=== PATIENT | female | born 1955 | race Caucasian/White ===

== ENCOUNTER 2018-05-22 12:36 | Emergency (ER) | payer OTHER ==
--- NOTE | 2018-05-22 13:01 | EDM.PDOC ---
ED HPI GENERAL MEDICAL PROBLEM - General Chief Complaint: Genitourinary Problem Stated Complaint: BLADDER PROBLEMS Time Seen by Provider: 05/22/18 13:00 Source of Information: Reports: Patient History Limitations: Reports: No Limitations - History of Present Illness INITIAL COMMENTS - FREE TEXT/NARRATIVE: 62-year-old female presents to the ED at the request of her primary care physician. Patient has recurrent urinary tract infections over the last 6 months. She is known to have bladder prolapse. 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 Has a known recurrent prolapse of the urinary bladder. She has been on Macrobid on 3 occasions in the month of April and May. Last culture was May 18 and is growing out Klebsiella oxytocae-- ESBL--resistant to almost all medications except for ciprofloxacin. It is also sensitive to tobramycin/gentamicin. Patient is having right flank pain in the distribution of her right kidney. Associated generalized muscle weakness. Chills last night but no defined fever. Appetite is poor. Intermittent mild nausea. She thought maybe the Macrobid was making her sick. She was followed by her primary care physician today to indicate that the organism was only intermediately sensitive to Macrobid and therefore she requires intravenous antibiotics. Onset: Gradual Onset Date: 05/16/18 (.Urinary tract symptoms are recurring in her bladder on May 16. Was seen in clinic May 18 with repeat urine culture. Has been feeling increasingly unwell since started on Macrobid at that time.) Duration: Day(s):, Getting Worse Location: Reports: Back (Developing right flank pain compatible with pyelonephritis.), Generalized Severity: Moderate Improves with: Reports: None Worsens with: Reports: None Context: Reports: Other (Known urinary tract infection due to prolapsed urinary bladder presumably. Is growing out Klebsiella oxytocia-- ESBL which is resistant to most antibiotics.). Denies: Activity, Exercise, Lifting, Sick Contact, Trauma Associated Symptoms: Reports: Cough, Fever/Chills (Chills but no defined fever.) , Loss of Appetite, Malaise (Occasional cough), Nausea/Vomiting, Weakness (Poor appetite and normalize muscle weakness), Other. 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: Other (see below) (Has been on Macrobid 100 mg twice a day for the last 4 days.) groin/backache Pain Score (Numeric/FACES): 7 - Related Data Allergies Allergy/AdvReac Type Severity Reaction Status Date / Time amitriptyline Allergy Hives Verified 05/22/18 12:58 codeine Allergy Hives Verified 02/19/14 18:05 ketorolac [From Toradol] Allergy Headache Verified 05/22/18 12:58 morphine Allergy Hives Verified 02/19/14 18:05 olmesartan [From Benicar] Allergy Other Verified 05/22/18 12:58 sulfamethoxazole Allergy Anaphylactic Verified 05/22/18 12:58 [From Bactrim] Shock tramadol Allergy Headache Verified 05/22/18 12:58 trimethoprim [From Bactrim] Allergy Anaphylactic Verified 05/22/18 12:58 Shock Home Meds: Home Meds Lisinopril [Prinivil] 40 mg PO BID 02/19/14 [History] Acetaminophen [Non-Aspirin Extra Strength] 1,000 mg PO QID PRN 05/22/18 [History ] Nitrofurantoin Monohyd/M-Cryst [Macrobid 100 mg Capsule] 100 mg PO BID 05/22/18 [History] Phenazopyridine [Pyridium] 100 mg PO TID PRN 05/22/18 [History] Promethazine [Phenergan] 25 mg PO Q6H PRN 05/22/18 [History] Ranitidine [Zantac] 150 mg PO BID 05/22/18 [History] levoFLOXacin [Levaquin] 500 mg PO DAILY #9 tab 05/22/18 [Rx] Past Medical History Genitourinary History: Reports: UTI, Recurrent (Known to have a bladder prolapse. Discussion has been whether or not to use a pessary versus a repeat surgery for bladder sling procedure. She had initial total abdominal hysterectomy and BSO with bladder sling procedure performed in 1999. Currently is experiencing intermittent incontinence with dribbling of urine loss of control of bladder.) - Past Surgical History GI Surgical History: Reports: Cholecystectomy Female Surgical History: Reports: Hysterectomy, Salpingo-Oophorectomy ( Bilateral done at the same time as the hysterectomy.), Other (See Below) ( Bladder sling procedure performed at the time of hysterectomy in 1999.) Social & Family History - Living Situation & Occupation Living situation: Reports: Occupation: Employed (Self-employed on the farm.) ED ROS GENERAL - Review of Systems Review Of Systems: See Below Constitutional: Reports: Chills, Malaise, Weakness, Fatigue, Decreased Appetite HEENT: Reports: No Symptoms Respiratory: Reports: Cough Cardiovascular: Reports: Blood Pressure Problem. Denies: Chest Pain ( Occasional cough nonproductive), Claudication (Hypertensive at the time of visit to the ED.), Dyspnea on Exertion, Edema, Lightheadedness, Orthopnea Endocrine: Reports: Fatigue GI/Abdominal: Reports: Decreased Appetite. Denies: Diarrhea : Reports: Flank Pain (Right flank pain), Frequency, Incontinence (Prolonged incontinence problems due to recurrent bladder prolapse.), Urgency, Other ( Recurrent urinary tract infections. Usually nocturia 3-4 times nightly which disrupts her sleep pattern.) Musculoskeletal: Reports: Back Pain (Right flank and low back pain) Skin: Reports: No Symptoms Neurological: Reports: No Symptoms Psychiatric: Reports: No Symptoms Hematologic/Lymphatic: Reports: No Symptoms Immunologic: Reports: No Symptoms ED EXAM, RENAL/ - Physical Exam Exam: See Below Exam Limited By: No Limitations General Appearance: Alert, WD/WN, No Apparent Distress, Other (Afebrile on examination.) Eye Exam: Bilateral Eye: Normal Inspection (No jaundice.) Throat/Mouth: Normal Inspection, Normal Lips, Normal Oropharynx Head: Atraumatic, Normocephalic Neck: Normal Inspection, Supple, Non-Tender, Full Range of Motion. No: Lymphadenopathy (L), Lymphadenopathy (R) Respiratory/Chest: No Respiratory Distress, Lungs Clear, Normal Breath Sounds, No Accessory Muscle Use, Chest Non-Tender Cardiovascular: Normal Peripheral Pulses, Regular Rate, Rhythm, No Edema, No Gallop, No Murmur, No Rub GI/Abdominal: Normal Bowel Sounds, Soft, No Organomegaly, No Abnormal Bruit, No Mass, Pelvis Stable (Mildly tender right upper quadrant of the abdomen.), Tender Back Exam: Full Range of Motion, CVA Tenderness (R). No: CVA Tenderness (L) ( Marked), Decreased Range of Motion, Muscle Spasm Extremities: Normal Inspection, Normal Range of Motion, Non-Tender, No Pedal Edema Neurological: Alert, Oriented, CN II-XII Intact, Normal Cognition, Normal Gait Psychiatric: Normal Affect, Normal Mood Skin Exam: Warm, Dry, Intact, Normal Color, No Rash Course - Vital Signs Last Recorded V/S: Last Vital Signs Temp 36.9 C 05/22/18 12:44 Pulse 81 05/22/18 12:44 Resp 18 05/22/18 12:44 BP 169/99 H 05/22/18 12:44 Pulse Ox 97 05/22/18 12:44 - Orders/Labs/Meds Orders: Active Orders 24 hr Category Date Time Status CULTURE BLOOD [BC] Stat Lab 05/22/18 14:05 Received Dextrose 5%-0.9% NaCl [Dextrose 5%-Normal Saline] 1,000 Med 05/22/18 13:15 Active ml IV ASDIRECTED Blood Culture x2 Reflex Set [OM.PC] Stat Oth 05/22/18 13:12 Ordered Medication Orders Dextrose/Sodium Chloride (Dextrose 5%-Normal Saline) 1,000 mls @ 250 mls/hr IV ASDIRECTED [facility] Last Admin: 05/22/18 13:57 Dose: 250 mls/hr Labs: Laboratory Tests 05/22/18 05/22/18 05/22/18 Range/Units 12:50 13:25 13:25 WBC 4.94 (3.98-10.04) K/mm3 RBC 4.33 (3.98-5.22) M/mm3 Hgb 11.3 (11.2-15.7) gm/L Hct 36.8 (34.1-44.9) % MCV 85.0 (79.4-94.8) fl MCH 26.1 (25.6-32.2) pg MCHC 30.7 L (32.2-35.5) g/dl RDW Std Deviation 45.2 (36.4-46.3) fL Plt Count 464 H (182-369) K/mm3 MPV 7.5 L (9.4-12.3) fl Neutrophils % (Manual) 73 H (40-60) % Band Neutrophils % 1 (0-10) % Lymphocytes % (Manual) 15 L (20-40) % Atypical Lymphs % 0 % Monocytes % (Manual) 7 (2-10) % Eosinophils % (Manual) 4 (0.7-5.8) % Basophils % (Manual) 0 L (0.1-1.2) Platelet Estimate Adequate RBC Morph Comment Normal ESR (0-20) mm/hr Sodium 134 L (136-145) mEq/L Potassium 4.1 (3.5-5.1) mEq/L Chloride 98 (98-107) mEq/L Carbon Dioxide 29 (21-32) mEq/L Anion Gap 11.1 (5-15) BUN 8 (7-18) mg/dL Creatinine 0.7 (0.55-1.02) mg/dL Est Cr Clr Drug Dosing 88.20 mL/min Estimated GFR (MDRD) > 60 (>60) mL/min BUN/Creatinine Ratio 11.4 L (14-18) Glucose 103 (80-115) mg/dL Calcium 9.6 (8.5-10.1) mg/dL Magnesium 2.1 (1.8-2.4) mg/dl Total Bilirubin 0.5 (0.2-1.0) mg/dL AST 43 H (15-37) U/L ALT 86 H (14-59) U/L Alkaline Phosphatase 142 H (46-116) U/L C-Reactive Protein 1.7 H* (<1.0) mg/dL Total Protein 8.8 H (6.4-8.2) g/dl Albumin 4.7 (3.4-5.0) g/dl Globulin 4.1 gm/dL Albumin/Globulin Ratio 1.2 (1-2) Urine Color [place] H (Yellow) Urine Appearance Clear (Clear) Urine pH 6.0 (5.0-8.0) Ur Specific [place] 1.010 (1.005-1.030) Urine Protein Negative (Negative) Urine Glucose (UA) Trace H (Negative) Urine Ketones Negative (Negative) Urine Occult Blood Negative (Negative) Urine Nitrite Positive H (Negative) Urine Bilirubin Negative (Negative) Urine Urobilinogen 0.2 (0.2-1.0) Ur Leukocyte Esterase Negative (Negative) Urine RBC 0-5 (0-5) /hpf Urine WBC Not seen (0-5) /hpf Ur Epithelial Cells Not seen (0-5) /hpf Urine Bacteria Not seen (FEW) /hpf Urine Mucus Not seen (FEW) /hpf 05/22/18 Range/Units 13:25 WBC (3.98-10.04) K/mm3 RBC (3.98-5.22) M/mm3 Hgb (11.2-15.7) gm/L Hct (34.1-44.9) % MCV (79.4-94.8) fl MCH (25.6-32.2) pg MCHC (32.2-35.5) g/dl RDW Std Deviation (36.4-46.3) fL Plt Count (182-369) K/mm3 MPV (9.4-12.3) fl Neutrophils % (Manual) (40-60) % Band Neutrophils % (0-10) % Lymphocytes % (Manual) (20-40) % Atypical Lymphs % % Monocytes % (Manual) (2-10) % Eosinophils % (Manual) (0.7-5.8) % Basophils % (Manual) (0.1-1.2) Platelet Estimate RBC Morph Comment ESR 27 H (0-20) mm/hr Sodium (136-145) mEq/L Potassium (3.5-5.1) mEq/L Chloride (98-107) mEq/L Carbon Dioxide (21-32) mEq/L Anion Gap (5-15) BUN (7-18) mg/dL Creatinine (0.55-1.02) mg/dL Est Cr Clr Drug Dosing mL/min Estimated GFR (MDRD) (>60) mL/min BUN/Creatinine Ratio (14-18) Glucose (80-115) mg/dL Calcium (8.5-10.1) mg/dL Magnesium (1.8-2.4) mg/dl Total Bilirubin (0.2-1.0) mg/dL AST (15-37) U/L ALT (14-59) U/L Alkaline Phosphatase (46-116) U/L C-Reactive Protein (<1.0) mg/dL Total Protein (6.4-8.2) g/dl Albumin (3.4-5.0) g/dl Globulin gm/dL Albumin/Globulin Ratio (1-2) Urine Color (Yellow) Urine Appearance (Clear) Urine pH (5.0-8.0) Ur Specific [place] (1.005-1.030) Urine Protein (Negative) Urine Glucose (UA) (Negative) Urine Ketones (Negative) Urine Occult Blood (Negative) Urine Nitrite (Negative) Urine Bilirubin (Negative) Urine Urobilinogen (0.2-1.0) Ur Leukocyte Esterase (Negative) Urine RBC (0-5) /hpf Urine WBC (0-5) /hpf Ur Epithelial Cells (0-5) /hpf Urine Bacteria (FEW) /hpf Urine Mucus (FEW) /hpf Meds: Medications Generic Name Dose Route Start Last Admin Trade Name Freq PRN Reason Stop Dose Admin Dextrose/Sodium Chloride 1,000 mls @ 250 mls/hr 05/22/18 13:15 05/22/18 13:57 Dextrose 5%-Normal Saline IV 250 mls/hr ASDIRECTED HENRRY Administration Discontinued Medications Generic Name Dose Route Start Last Admin Trade Name Freq PRN Reason Stop Dose Admin Levofloxacin/Dextrose 750 mg/ 150 mls @ 100 mls/hr 05/22/18 13:14 05/22/18 14 :28 Premix IV 05/22/18 14:43 100 mls/hr ONETIME ONE Administration Ondansetron HCl 4 mg 05/22/18 14:32 05/22/18 14:40 Zofran IVPUSH 05/22/18 14:33 4 mg ONETIME ONE Administration - Radiology Interpretation Free Text/Narrative:: 62-year-old female presents to the ED at the request of her primary care provider. Patient has chronic recurrent urinary tract infections presumably due to prolapse of her urinary bladder. Total bowel hysterectomy and BSO and a bladder sling [place] [address] Bernabe Garcia in [place]. Discussions of centered around whether or not she should be using a pessary versus repeat surgery to re-support her bladder. She has been on a course of Macrobid in April and early May and now again started on Macrobid May 18 for urinary tract infection. However the culture is growing out Klebsiella oxytociae ESBL which is only intermediately sensitive to the Macrobid. Patient feels like she is getting worse instead of better with the development of right flank pain generalized weakness decreased appetite. Chills last night but no defined fever. Medically she does have marked pain over her right costovertebral angle suggesting developing pyelonephritis. The organism is sensitive to ciprofloxacin and thus likely Levaquin. Is also sensitive to tobramycin and thus likely gentamicin. Plan septic workup will be carried out. Plan will be to start her on Levaquin 750 mg IV as soon as the blood cultures 2 are obtained. - Re-Assessments/Exams Free Text/Narrative Re-Assessment/Exam: 05/22/18 14:07 CT of the abdomen and pelvis has been performed. It shows no evidence of any renal calculi or ureteral stone or bladder stone to account for recurrent infections. Noncontrast appearance of the liver and spleen appears to be normal. Noted small hiatal hernia. Adrenal glands normal. No abnormalities appreciated within the pancreas. Has evidence of previous cholecystectomy. Aorta is normal with note any aneurysmal dilatation. No retroperitoneal adenopathy noted. No mesenteric abnormalities identified there is increased stool noted throughout the colon. Appendix is visualized and shows no dilatation or signs of appendicitis. Bone window reveals extensive disc space narrowing and vacuum phenomenon at the L5-S1 level. Mild degenerative changes are appreciated throughout the thoracic and lumbar spine 05/22/18 14:11 Labs are back showing a normal white count at 4.94. Differential is 73% neutrophils 1% band cells. Hemoglobin is a little low at 11.3. Hematocrit is 36.8. MCV is normal at 85. Reticulocyte count is elevated at 464, 000 reason for this is unclear. Sodium is 134 potassium 4.1. Chloride is 98 with bicarbonate 29. Anion gap is 11.1. BUN is 8 with a creatinine of 0.7. EGFR is greater than 60. Glucose is 103 with a calcium of 9.6. Magnesium is 2.1. Bilirubin is normal at 0.5 AST is mildly elevated at 43 ALT is 86. Alk phosphatase is mildly elevated at 142. CRP is mildly elevated at 1.7. Urinalysis is positive for nitrates negative for leukocyte esterase. Negative micral on the urine. 05/22/18 14:26 when went to check and the patient they had not yet obtained a second blood culture. Since her white count is 4.9 and canceled the second blood culture. She'll now start her IV antibiotic therapy for suspect right- sided pyelonephritis. Of note there was no significant evidence of pyelonephritis on the right kidney on CT scan. Plan will be to allow her to finish up the IV Levaquin and then be discharged on Levaquin 500 mg once daily for full 10 day treatment plan. 05/22/18 14:32 patient is complaining of nausea. Levaquin was just started. Will give her Zofran 4 mg IV. 05/22/18 16:09 patient has completed her IV antibiotics. She will therefore be discharged to home to use Levaquin 500 mg once daily for another 9 days starting tomorrow morning. Follow-up with her personal care physician 5 days after antibiotics are done for repeat urinalysis to make sure the infection has been eradicated. Overall I think she is going to require repeat surgery to re- support her bladder since she is so young and has chronic infective process. Departure - Departure Time of Disposition: 16:10 Disposition: Home, Self-Care 01 Condition: Fair Clinical Impression: UTI, Urinary tract infectious disease, Prolapsed bladder - Discharge Information *PRESCRIPTION DRUG MONITORING PROGRAM REVIEWED*: Not Applicable *COPY OF PRESCRIPTION DRUG MONITORING REPORT IN PATIENT VETO: Not Applicable Prescriptions: levoFLOXacin [Levaquin] 500 mg PO DAILY #9 tab Instructions: Urinary Tract Infection, Adult, [id number] Referrals: Braxton Lima MD [Primary Care Provider] - Forms: ED Department Discharge Additional Instructions: Evaluation the emergency room today in regards to chronic urinary tract infection felt to be secondary to bladder prolapse. CT scan of the abdomen and pelvis did not reveal any stone disease in either the kidneys ureters or the bladder itself to cause recurrent infective process. Clinically you have pain in your right kidney which we call pyelonephritis. You're therefore treated with intravenous Levaquin 750 mg to begin treatment for infection. Current organism that is growing in your bladder is highly resistant to several lower normal antibiotics including the Macrobid. Treatment is therefore to discontinue the Macrobid and replace it with Levaquin 500 mg once daily every morning for the next 9 days. Clear up infection as the organism is sensitive to this medication. Suggest follow-up urinalysis be done 5 days after finishing antibiotic therapy to make sure that the infection has been completely eradicated. He is okay to use Azo--[id number] Pyridium, as needed for relief of urgency and frequency symptoms. - My Orders Last 24 Hours: My Active Orders 05/22/18 13:12 Blood Culture x2 Reflex Set [OM.PC] Stat 05/22/18 13:15 Dextrose 5%-0.9% NaCl [Dextrose 5%-Normal Saline] 1,000 ml IV ASDIRECTED 05/22/18 14:05 CULTURE BLOOD [BC] Stat - Assessment/Plan Last 24 Hours: My Active Orders 05/22/18 13:12 Blood Culture x2 Reflex Set [OM.PC] Stat 05/22/18 13:15 Dextrose 5%-0.9% NaCl [Dextrose 5%-Normal Saline] 1,000 ml IV ASDIRECTED 05/22/18 14:05 CULTURE BLOOD [BC] Stat
[2018-05-22] MEDS ORDERED: Levofloxacin/Dextrose 5%-Water 750 MG in Premix Bag 1 BAG IV ONE (13:14)
[2018-05-22] MEDS ORDERED: Dextrose 5%-0.9% NaCl 1,000 ML IV SCH (13:15)
--- NOTE | 2018-05-22 14:03 | CT ---
CT abdomen and pelvis Technique: Multiple axial sections were obtained from above the dome of the diaphragm inferiorly through the pubic symphysis. Intravenous and oral contrast utilized. Study has been performed as a ureteral stone protocol. Findings: Kidneys show no abnormal calcifications. No abnormal calcifications are seen along the course of the ureters. Visualized lung bases are clear. Noncontrast appearance of the liver and spleen appears within normal limits. Small hiatal hernia is noted. Adrenal glands show no nodule. No discrete abnormality is identified within the pancreas. Surgical clips are seen from prior cholecystectomy. Aorta shows no aneurysmal dilatation. No retroperitoneal adenopathy is seen. No mesenteric abnormalities are identified. Slight increased stool is noted within the colon. Appendix shows no dilatation. Bone window settings were reviewed which shows disc space narrowing and vacuum phenomenon at L5-S1. Slight degenerative change is noted within the spine. Impression: 1. No renal calculi, ureteral stone or ureteral dilatation is seen. 2. Slight increased stool within the colon is seen. 3. Nothing acute is appreciated on noncontrast CT study of the abdomen and pelvis. Diagnostic code #2
[2018-05-22] MEDS ORDERED: Ondansetron 4 MG/2 ML SDV IVPUSH ONE (14:32)
== END 2018-05-22 16:38 | disposition home or self-care (01) ==
LOC: JD.ED 12:36
DX: N39.0 Urinary tract infection, site not specified (principal); N81.10 Cystocele, unspecified; Z88.5 Allergy status to narcotic agent; Z88.8 Allergy status to other drugs, medicaments and biological substances
CPT/HCPCS: 36415; 74176; 80053; 81001; 83735; 85007; 85027; 85652; 86140; 87040; 96361; 96365; 96366; 96375; 99284; J1956; J2405; J7042

== ENCOUNTER 2018-05-28 19:00 | Emergency (ER) | payer OTHER ==
--- NOTE | 2018-05-28 20:04 | EDM.PDOC ---
ED HPI GENERAL MEDICAL PROBLEM - General Chief Complaint: Cardiovascular Problem Stated Complaint: HIGH BP Time Seen by Provider: 05/28/18 19:22 Source of Information: Reports: Patient History Limitations: Reports: No Limitations - History of Present Illness INITIAL COMMENTS - FREE TEXT/NARRATIVE: Patient is a 62-year-old female presents ED complaining of generalized body aches, weakness, fatigue, nausea, and generalized headaches. Patient has a history of generalized headaches in the past with taking her blood pressure medications as well as nausea. This is why she takes promethazine for the nausea. She states over the past few days she's noticed her blood pressure has been variable elevated with headache. Patient states she developed a headache earlier today and took her second dose of lisinopril 40 mg prior to coming in. Her blood pressure on examination was 131/80. States she was evaluated this past Monday and diagnosed with a UTI placed on Macrobid which came back to be not sensitive to the bug present. She was started on levofloxacin to which she discontinued after the third dose. She was advised by her primary care provider Lucie Flores to stop this med due to these symptoms she was experiencing as listed above. Patient has been eating okay. At times she's had elevated blood pressure with a heaviness to her chest. She has no chest discomfort as we speak. No dizziness, no presyncope/syncopal episodes, no dysuria, no abdominal pain, no pain or swelling to her lower extremity. Headache is consistent with previous headaches described as generalized gradual onset. Reviewed ED visit 05/22/2018: Patient has a recurrent urinary tract infections over the last 6 months. Patient has history of bladder prolapse requiring surgery and a total hysterectomy and BSO and bladder sling procedure carried out about [address] Nieves. She has been on Macrobid on 3 occasions in the month of April and May. Last urine culture was May 18 and was found to be growing out Klebsiella oxytocae---ESBL---resistant to almost all medications except for ciprofloxacin. It is also sensitive to tobramycin/gentamicin. Patient had been on Macrobid and was followed by the primary care physician to indicate that the organism was only intermittently sensitive to Macrobid and therefore she required intravenous antibiotics. Patient at that time had reported generalized weakness. Chills at night with no documented fever. Poor appetite with intermittent nausea. Patient reported that she thought the Macrobid was making her sick. She was sent to the ED for intravenous antibiotics. She was started on Levaquin with evaluation in the ED. Labs were obtained included CBC, cmp, UA, ESR, CRP. Patient's white blood count was normal. Platelet count 464. Hemoglobin 11.3. Potassium 4.1. Creatinine 0.7. LFTs mildly elevated. CRP 1.7. UA was positive for nitrates. Urine wbc's not seen. Urine bacteria not seen. Negative leukocyte Estrace. Patient was discharged on Levaquin. Headache Pain Score (Numeric/FACES): 7 - Related Data Allergies Allergy/AdvReac Type Severity Reaction Status Date / Time amitriptyline Allergy Hives Verified 05/28/18 19:13 codeine Allergy Hives Verified 05/28/18 19:13 ketorolac [From Toradol] Allergy Headache Verified 05/28/18 19:13 morphine Allergy Hives Verified 05/28/18 19:13 olmesartan [From Benicar] Allergy Other Verified 05/28/18 19:13 propranolol Allergy Dizziness Verified 05/28/18 19:13 sulfamethoxazole Allergy Anaphylactic Verified 05/28/18 19:13 [From Bactrim] Shock tramadol Allergy Headache Verified 05/28/18 19:13 trimethoprim [From Bactrim] Allergy Anaphylactic Verified 05/28/18 19:13 Shock Home Meds: Home Meds Lisinopril [Prinivil] 40 mg PO BID 02/19/14 [History] Acetaminophen [Non-Aspirin Extra Strength] 1,000 mg PO QID PRN 05/22/18 [History ] Nitrofurantoin Monohyd/M-Cryst [Macrobid 100 mg Capsule] 100 mg PO BID 05/22/18 [History] Phenazopyridine [Pyridium] 100 mg PO TID PRN 05/22/18 [History] Promethazine [Phenergan] 25 mg PO Q6H PRN 05/22/18 [History] Ranitidine [Zantac] 150 mg PO BID 05/22/18 [History] levoFLOXacin [Levaquin] 500 mg PO DAILY #9 tab 05/22/18 [Rx] Past Medical History Cardiovascular History: Reports: Hypertension Gastrointestinal History: Reports: GERD, Other (See Below) Other Gastrointestinal History: nausea Genitourinary History: Reports: UTI, Recurrent Other Genitourinary History: prolapsed bladder - Past Surgical History GI Surgical History: Reports: Cholecystectomy Female Surgical History: Reports: Hysterectomy, Salpingo-Oophorectomy, Other (See Below) Social & Family History - Family History Family Medical History: Noncontributory - Tobacco Use Smoking Status *Q: Never Smoker - Caffeine Use Caffeine Use: Reports: Soda - Recreational Drug Use Recreational Drug Use: No - Living Situation & Occupation Living situation: Reports: Occupation: Employed (Self-employed on the farm.) ED ROS GENERAL - Review of Systems Review Of Systems: ROS reveals no pertinent complaints other than HPI. HEENT: Reports: No Symptoms Neurological: Reports: Headache. Denies: Confusion, Dizziness, Numbness, Paresthesia, Tingling, Trouble Speaking, Difficulty Walking, Change in Speech, Gait Disturbance ED EXAM, GENERAL - Physical Exam Exam: See Below Exam Limited By: No Limitations General Appearance: Alert, WD/WN, No Apparent Distress Eye Exam: Bilateral Eye: Normal Inspection, Nystagmus (none noted), PERRL, Vision Changes (none noted) Ears: Hearing Grossly Normal Nose: Normal Inspection Throat/Mouth: Normal Voice, No Airway Compromise Neck: Normal Inspection, Supple Respiratory/Chest: No Respiratory Distress, Lungs Clear, Normal Breath Sounds, No Accessory Muscle Use, Chest Non-Tender Cardiovascular: Normal Peripheral Pulses, Regular Rate, Rhythm, No Murmur Peripheral Pulses: 2+: Radial (L), Radial (R) GI/Abdominal: Normal Bowel Sounds, Soft, Non-Tender, No Organomegaly, No Distention Back Exam: Normal Inspection. No: CVA Tenderness (L), CVA Tenderness (R) Extremities: Normal Inspection, Normal Range of Motion, Non-Tender, No Pedal Edema, Normal Capillary Refill Neurological: Alert, Oriented, CN II-XII Intact, Normal Cognition, No Motor/ Sensory Deficits Psychiatric: Normal Affect, Normal Mood Skin Exam: Warm, Dry, Intact, Normal Color, No Rash Course - Vital Signs Last Recorded V/S: Last Vital Signs Temp 97.9 F 05/28/18 19:09 Pulse 95 05/28/18 19:09 Resp 18 05/28/18 19:09 BP 174/92 H 05/28/18 19:09 Pulse Ox 98 05/28/18 19:09 - Orders/Labs/Meds Orders: Active Orders 24 hr Category Date Time Status EKG 12 Lead [EKG Documentation Completion] [RC] STAT Care 05/28/18 19:56 Active Chest 1V Frontal [CR] Stat Exams 05/28/18 19:56 Taken Labs: Laboratory Tests 05/28/18 05/28/18 05/28/18 Range/Units 20:00 20:00 20:00 WBC 6.69 (3.98-10.04) K/mm3 RBC 3.90 L (3.98-5.22) M/mm3 Hgb 10.3 L (11.2-15.7) gm/L Hct 33.4 L (34.1-44.9) % MCV 85.6 (79.4-94.8) fl MCH 26.4 (25.6-32.2) pg MCHC 30.8 L (32.2-35.5) g/dl RDW Std Deviation 46.0 (36.4-46.3) fL Plt Count 404 H (182-369) K/mm3 MPV 7.5 L (9.4-12.3) fl Neutrophils % (Manual) 78 H (40-60) % Band Neutrophils % 0 (0-10) % Lymphocytes % (Manual) 15 L (20-40) % Atypical Lymphs % 0 % Monocytes % (Manual) 5 (2-10) % Eosinophils % (Manual) 1 (0.7-5.8) % Basophils % (Manual) 1 (0.1-1.2) Platelet Estimate Adequate RBC Morph Comment Normal Sodium 136 (136-145) mEq/L Potassium 4.4 (3.5-5.1) mEq/L Chloride 100 (98-107) mEq/L Carbon Dioxide 25 (21-32) mEq/L Anion Gap 15.4 H (5-15) BUN 9 (7-18) mg/dL Creatinine 0.8 (0.55-1.02) mg/dL Est Cr Clr Drug Dosing 77.18 mL/min Estimated GFR (MDRD) > 60 (>60) mL/min BUN/Creatinine Ratio 11.3 L (14-18) Glucose 101 (80-115) mg/dL Calcium 9.2 (8.5-10.1) mg/dL Total Bilirubin 0.6 (0.2-1.0) mg/dL AST 36 (15-37) U/L ALT 83 H (14-59) U/L Alkaline Phosphatase 117 H (46-116) U/L Troponin I < 0.017 (0.00-0.056) ng/mL C-Reactive Protein 0.9 (<1.0) mg/dL Total Protein 8.2 (6.4-8.2) g/dl Albumin 4.5 (3.4-5.0) g/dl Globulin 3.7 gm/dL Albumin/Globulin Ratio 1.2 (1-2) TSH 3rd Generation 2.314 (0.358-3.74) uIU/mL - Re-Assessments/Exams Free Text/Narrative Re-Assessment/Exam: Patient was evaluated at the walk-in clinic today with a UA obtained. The UA indicates trace blood, positive nitrates, trace leukocyte Estrace, urine wbc's 6 -20. Occasional epithelial cells. Negative bacteria.. Will contact [facility] medical records to obtain urine culture results. Review Dr. Colin's ED visit 05/22/2018. Patient's current symptoms are similar to previous visit. EKG sinus rhythm with no acute ST changes noted. CXR: reviewed with Dr. Slaughter with no acute findings noted. Final interpretation is pending. 05/28/18 21:00 urine culture from 05/18/2018 sample obtained. Greater than 100, 000 CFU/milliliters of Klebsiella oxytoca, esbl. Sensitive to ceftazidime, ciprofloxacin, ertapenem, gentamicin, meropenem, and tobramycin. Labs reviewed: White blood cell count 6.69, hemoglobin 10.3, platelet count 404 , chemistry panel is essentially normal. Cr 0.8. Glucose 11. CRP 0.9. TSH 2.314. Troponin is negative. Discussed with the patient in great detail treatment options for this resistant bacteria within her urine. There is only 1 medication on the list that comes in a oral form sensitive to the bacteria present. That is ciprofloxacin same class as the Levaquin that patient reports causing the symptmos listed in the HPI that appear to be present with previous E.D. visit that the patient denies. I offered to start her back on ciprofloxacin to which she resisted. In addition patient does not want to be admitted to the hospital for IV antibiotic therapy. She states she has things at home that he to be tended to prior to admission. She is wishing to be admitted to [facility] tomorrow when all her items are in order. I have advised her that I would not beable to arrange admission for tomorrow this evening. The patient would require to go through the ER tomorrow to be admitted to the hospital for IV therapy. She had voiced her understanding. I have spoken with Dr. Montes at 2141. He agrees that there is no other oral therapies available on the sensitivity list. He agreed to admit the patient per her request. Patient again is adamant that she does not want to be admitted today. I have advised her that her symptoms could would worsen secondary to the infection within her bladder. Thus if symptoms get worse she may have a difficult time in controlling infection. In addition I advised her there are multiple adverse side effects with taking any antibiotic but cannot promise what mali adverse reactions she would have. Patient and acknowledged potential complications without initiating care and again would like to be discharged home. I spent in total 1.25 hrs with the patient and patients answering all questions. Departure - Departure Time of Disposition: 22:23 Disposition: Home, Self-Care 01 Condition: Good Clinical Impression: UTI, Urinary tract infectious disease, Prolapsed bladder, Malaise, Nausea Instructions: Nausea, Adult, Antibiotic Medicine, Adult, [id number], Urine Culture and Sensitivity Testing Referrals: Braxton Lima MD [Primary Care Provider] - Forms: ED Department Discharge Additional Instructions: Please see your PCP tomorrow or go to [facility] ER for further evaluation and admission for recurrent UTIs with resistant bacteria present on urine culture tomorrow a.m. You refused admission to the hospital here in [place] and transfer to [place] this evening for IV antibiotic therapy and refuses starting on ciprofloxacin due to adverse side effects. If you develop any worsening symptoms please return to the closests E.D. for reevaluation. Consultation with Infectious Disease would be of benefit. This can be arranged with admission to the hospital. - My Orders Last 24 Hours: My Active Orders 05/28/18 19:56 EKG 12 Lead [EKG Documentation Completion] [RC] STAT Chest 1V Frontal [CR] Stat - Assessment/Plan Last 24 Hours: My Active Orders 05/28/18 19:56 EKG 12 Lead [EKG Documentation Completion] [RC] STAT Chest 1V Frontal [CR] Stat
--- NOTE | 2018-05-31 09:14 | CR ---
Chest: Portable view of the chest was obtained. Comparison: No prior chest x-ray. Heart size appears within normal limits for portable technique. Upper mediastinum also within normal limits for portable technique. Lungs are clear without acute parenchymal change. Bony structures are grossly intact. Impression: 1. Nothing acute is seen on portable chest x-ray. Diagnostic code #1
== END 2018-05-28 22:45 | disposition home or self-care (01) ==
LOC: JD.ED 19:00
DX: N39.0 Urinary tract infection, site not specified (principal); N81.10 Cystocele, unspecified; R11.0 Nausea; R53.81 Other malaise; K21.9 Gastro-esophageal reflux disease without esophagitis; I10 Essential (primary) hypertension; Z88.5 Allergy status to narcotic agent; Z88.8 Allergy status to other drugs, medicaments and biological substances; Z79.899 Other long term (current) drug therapy
CPT/HCPCS: 36415; 71045; 80053; 84443; 84484; 85007; 85027; 86140; 93005; 93010; 99284; 99285-25